=== PATIENT | male | born 1990 | race Caucasian/White ===

== ENCOUNTER 2017-04-22 11:12 | Emergency (ER) | payer SELFPAY ==
[2017-04-22] MEDS ORDERED: ceFAZolin 2 GM PREMIX (*) 2 GM/50 ML BAG IVPB ONE (11:19)
[2017-04-22] MEDS ORDERED: NS 0.9% 1000 ML* 2,000 ML IV ONE (11:19)
[2017-04-22] MEDS ORDERED: Tetan/Diph/Pertus SYR(Tdap)* 0.5 ML SYR(BOOSTRIX) use SYR IM ONE (11:19)
[2017-04-22] MEDS ORDERED: Morphine INJ* 4 MG/ML 1 ML CARPUJECT IV ONE ×2 (11:31→11:32)
[2017-04-22] MEDS ORDERED: Morphine INJ* 4 MG/ML 1 ML CARPUJECT ONE (11:33)
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
[2017-04-22 11:45] LABS: Hematocrit 46 % (42-52); Hemoglobin 14.9 g/dl (14.0-18.0); Mean Corpuscular HGB Conc 33 g/dl (31-36); Mean Corpuscular Hemoglobin 28 pg (27-31); Mean Corpuscular Volume 87 fL (80-94); Mean Platelet Volume 8 um3 (7.4-10.4); Red Blood Count 5.24 10^6/ul (4.0-5.4); Red Cell Distribution Width 16 % (10.5-15); White Blood Count 16.8 10^3/ul (3.5-10.8)
[2017-04-22 11:49] LABS: Alcohol < 10 mg/dL (<10)
[2017-04-22] MEDS ORDERED: Midazolam* 1 MG/ML 5 ML VIAL (5 MG) ONE (11:49)
[2017-04-22 11:50] LABS: ALT 12 U/L (7-52); AST 24 U/L (13-39); Albumin 4.8 g/dL (3.2-5.2); Alkaline Phosphatase 69 U/L (34-104); Anion Gap 11 mmol/L (2-11); Blood Urea Nitrogen 16 mg/dL (6-24); CO2 Carbon Dioxide 22 mmol/L (22-32); Chloride 101 mmol/L (101-111); Creatine Kinase 548 U/L (10-223); EGFR African American 84.3 (>60); EGFR Non-African American 65.5 (>60); Globulin 3.8 g/dL (2-4); Glucose 178 mg/dL (70-100); Potassium 3.8 mmol/L (3.5-5.0); Sodium 134 mmol/L (133-145); Total Protein 8.6 g/dL (6.4-8.9)
[2017-04-22] MEDS ORDERED: fentaNYL* 50 MCG/ML 2 ML VIAL (100 MCG VIAL) ONE (11:50)
[2017-04-22] MEDS ORDERED: Midazolam* 1 MG/ML 5 ML VIAL (5 MG) SLOW PUSH ONE (11:50)
[2017-04-22] MEDS ORDERED: fentaNYL* 50 MCG/ML 2 ML VIAL (100 MCG VIAL) IV SLOW PU ONE ×2 (11:50→12:21)
[2017-04-22] MEDS ORDERED: Lidocaine 1% INJ* 10 MG/ML 30 ML SDV ONE (11:53)
[2017-04-22] MEDS ORDERED: Midazolam* 1 MG/ML 5 ML VIAL (5 MG) IV ONE (12:20)
[2017-04-22] MEDS ORDERED: Lidocaine 1% MDV 20 ML INJ ONE (12:22)
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
--- NOTE | 2017-04-22 12:37 | RAD ---
HISTORY: Post chest tube insertion COMPARISONS: April 22, 2017 at 10:19 AM VIEWS:1: Single frontal portable view of the chest at 11:17 AM FINDINGS: LINES AND TUBES: A left-sided chest tube is noted. CARDIOMEDIASTINAL SILHOUETTE: The cardiomediastinal silhouette is normal for portable technique. PLEURA: The costophrenic angles are sharp. No pleural abnormalities are noted. There is no appreciable residual pneumothorax. LUNG PARENCHYMA: The lungs are clear. ABDOMEN: The upper abdomen is clear. There is no subphrenic gas. BONES AND SOFT TISSUES: There is a small amount of subcutaneous emphysema. IMPRESSION: STATUS POST LEFT SIDED CHEST TUBE INSERTION. NO APPRECIABLE RESIDUAL PNEUMOTHORAX.
[2017-04-22 13:29] VITALS: BP 138/72
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
== END 2017-04-22 13:28 | disposition short-term general hospital (02) ==
LOC: ED 11:12
DX: S21.412A Laceration without foreign body of left back wall of thorax with penetration into thoracic cavity, initial encounter (principal); S27.0XXA Traumatic pneumothorax, initial encounter; X99.1XXA Assault by knife, initial encounter; Y92.9 Unspecified place or not applicable
CPT/HCPCS: 32551; 36415; 71010; 80053; 80320; 82550; 83605; 85025; 85610; 86850; 86900; 86901; 90715; 93005; 96360; 96374; 96375; 96376; 99285; G0480; J0690; J2001; J2250; J2270; J3010

== ENCOUNTER 2017-05-08 13:33 | Emergency (ER) | payer OTHER ==
[2017-05-08 14:14] VITALS: BP 113/56
[2017-05-08 16:47] LABS: Urine Bacteria 1+ (Absent); Urine Bilirubin Negative (Negative); Urine Glucose Negative (Negative); Urine Nitrite Positive (Negative)
[2017-05-08] MEDS ORDERED: Ciprofloxacin TAB* 500 MG PO ONE ×2 (16:58)
[2017-05-08] MEDS ORDERED: NS 0.9% 1000 ML* 1,000 ML IV ONE (16:59)
[2017-05-08] MEDS ORDERED: cefTRIAXone(*) 1 GM in NS 0.9% 50 ML* 50 ML IVPB ONE (17:30)
[2017-05-08 17:54] LABS: Hematocrit 37 % (42-52); Hemoglobin 12.1 g/dl (14.0-18.0); Mean Corpuscular HGB Conc 33 g/dl (31-36); Mean Corpuscular Hemoglobin 28 pg (27-31); Mean Corpuscular Volume 86 fL (80-94); Mean Platelet Volume 8 um3 (7.4-10.4); Red Blood Count 4.26 10^6/ul (4.0-5.4); Red Cell Distribution Width 17 % (10.5-15); White Blood Count 10.2 10^3/ul (3.5-10.8)
[2017-05-08 18:09] LABS: Albumin 4.2 g/dL (3.2-5.2); BUN/Creatinine Ratio 10.5 (8-20); C Reactive Protein 29.19 mg/L (< 5.00); Calcium 9.3 mg/dL (8.6-10.3); EGFR African American 110.7 (>60); EGFR Non-African American 86.1 (>60); Globulin 2.9 g/dL (2-4); Total Bilirubin 0.3 mg/dL (0.2-1.0); Total Protein 7.1 g/dL (6.4-8.9)
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
--- NOTE | 2017-05-11 08:36 | ED ---
Progress - Progress Note Progress Note: Urine organism is sens to cipro which pt is taking - no changes at this time Course/Dx - Course Course Of Treatment: Mr. Heart was stable here in the ED, however, he has an indwelling right-sided stent, has had frequent infections and has been on outpatient antibiotics for 4-5 days. His U/A was clearly infected, he had no leukocytosis or fever and he was given IV NS, rocephin and gent. He will need to be transfered as we have no urological coverage this weekend. - Diagnoses Provider Diagnoses: Infection associated with indwelling ureteral stent - Provider Notifications Reason For Transfer: Specialty or service not available at [facility] [place]. - Critical Care Time Critical Care Time: 30-74 min
== END 2017-05-08 19:06 | disposition short-term general hospital (02) ==
LOC: ED 13:33
DX: T83.593A Infection and inflammatory reaction due to other urinary stents, initial encounter (principal); Y84.8 Other medical procedures as the cause of abnormal reaction of the patient, or of later complication, without mention of misadventure at the time of the procedure; Y92.9 Unspecified place or not applicable; F17.200 Nicotine dependence, unspecified, uncomplicated; N39.0 Urinary tract infection, site not specified; B96.20 Unspecified Escherichia coli [E. coli] as the cause of diseases classified elsewhere
CPT/HCPCS: 36415; 80053; 81003; 81015; 83605; 83690; 85025; 86140; 87040; 87077; 87086; 87186; 96360; 96374; A9270-GY; J0696; J1580

== ENCOUNTER 2019-09-12 19:51 | Emergency (ER) | payer MEDICAID, OTHER ==
[2019-09-12 20:15] VITALS: BP 153/102
[2019-09-12] MEDS ORDERED: Cephalexin CAP* 500 MG PO ONE ×2 (20:49→20:52)
[2019-09-12] MEDS ORDERED: Sulfamethox/Trimethoprim DS 800/160* TAB PO ONE ×2 (20:50→20:53)
[2019-09-12] MEDS ORDERED: Ibuprofen TAB* 400 MG PO ONE (20:50)
--- NOTE | 2019-09-12 20:55 | UC ---
Skin Complaint HPI - HPI Summary HPI Summary: 29 y/o male presents to the urgent care c/o tip of his nose if red and very painful for the past 3 days. Pt reports he was picking at his nose today and he noticed green discharge and it became more painful. Pt states pain at touch is 9 /10 and at rest is 5/10 pressure like. Pt has not taken anything to alleviate pain, He applied hidrocortisone topical cream w/o any improvement. Pt denies Hx of MRSA, IV drug use, fever, DOMINGUEZ, dizziness, chest pain,abdominal pain, N/V/ D. He states he has never had an abscess before. - History of Current Complaint Chief Complaint: UCSkin Time Seen by Provider: 09/12/19 20:32 Stated Complaint: FACIAL PAIN Hx Obtained From: Patient Onset/Duration: Gradual Onset, Lasting Days - 3 days, Worse Since - today severe pain at touch Skin Exposure Onset/Duration: Days Ago - 3 days, Worse Since: - today Timing: Constant Onset Severity: Mild Current Severity: Severe Pain Intensity: 9 - at touch Pain Scale Used: 0-10 Numeric Location: Nose - tip of nose w/ Character: Swelling, Pain - nose pain, Redness, Raised Aggravating Factor(s): Touch, Other - he was picking out and mild green drainage observed Alleviating Factor(s): Nothing Associated Signs & Symptoms: Positive: Rash - tip of nose w/ redness and painful , Drainage - mild green from tip of nose, Tenderness. Negative: Shivering, Difficulty Breathing, Fever, Chills, Hoarseness, Throat Tightening, Lightheadedness, Red Streaks, Joint Swelling Related History: Other: - unknown - Allergy/Home Medications Allergies/Adverse Reactions: Allergies Allergy/AdvReac Type Severity Reaction Status Date / Time No Known Allergies Allergy Verified 09/12/19 20:15 Home Medications: Home Medications Hydrocortisone 1% CREAM* [Hytone Cream 1%*] 09/12/19 [History] PMH/Surg Hx/FS Hx/Imm Hx Previously Healthy: Yes - Pt denies PMHX - Surgical History Surgical History: Yes Surgery Procedure, Year, and Place: repair abd organs post injury - Family History Known Family History: Positive: Hypertension, Diabetes - Social History Occupation: Student Lives: With Family Alcohol Use: Occasionally Substance Use Type: Marijuana Substance Use Comment - Amount & Last Used: Per family does drugs but unknown amt and type Smoking Status (MU): Current Every Day Smoker Type: Cigarettes Amount Used/How Often: 1 ppd Review of Systems All Other Systems Reviewed And Are Negative: Yes Constitutional: Positive: Negative Skin: Positive: Rash - tip of nose w/ red rash painful and mild green drainage for the past 3 days Eyes: Positive: Negative ENT: Positive: Negative Respiratory: Positive: Negative Cardiovascular: Positive: Negative Gastrointestinal: Positive: Negative Genitourinary: Positive: Negative Motor: Positive: Negative Neurovascular: Positive: Negative Musculoskeletal: Positive: Negative Neurological: Positive: Negative Psychological: Positive: Negative Is Patient Immunocompromised?: No Physical Exam - Summary Physical Exam Summary: Vital Signs Reviewed: Yes General: well developed, well nourished male sitting in the examining table w/o any apparent distress Eye Exam: Normal Eyes: Positive: Conjunctiva Clear - PERRLA, EOMI, fundi grossly normal ENT: Positive: Normal ENT inspection, Hearing grossly normal, Pharynx normal, TMs normal Neck: Positive: Supple, Nontender, No Lymphadenopathy Respiratory: Positive: Chest non-tender, Lungs clear, Normal breath sounds, No respiratory distress Cardiovascular: Positive: RRR, No Murmur, Pulses Normal, Brisk Capillary Refill Abdomen Description: Positive: Nontender, No Organomegaly, Soft. Negative: CVA Tenderness (R), CVA Tenderness (L) Bowel Sounds: Positive: Present Musculoskeletal: Positive: Strength Intact, ROM Intact, No Edema Neurological: Positive: Alert, Muscle Tone Normal Psychological Exam: Normal Skin: Positive: Positive erythematous patch w/ indistinct borders at the tip of the external nose,indurated, warm and tender to palpation, mild green drainage observed ant the entrance of the. pulses WNL, capillary refill brisk, sensation WNL. Triage Information Reviewed: Yes Vital Signs: Initial Vital Signs Temp 98.2 F 09/12/19 20:12 Pulse 84 09/12/19 20:12 Resp 20 09/12/19 20:12 BP 153/102 09/12/19 20:12 Pulse Ox 100 09/12/19 20:12 Course/Dx - Course Course Of Treatment: 29 y/o male presents to the urgent care c/o tip of his nose if red and very painful for the past 3 days. Pt reports he was picking at his nose today and he noticed green discharge and it became more painful. Pt states pain at touch is 9 /10 and at rest is 5/10 pressure like. Pt has not taken anything to alleviate pain, He applied hidrocortisone topical cream w/o any improvement. Pt denies Hx of MRSA, IV drug use, fever, DOMINGUEZ, dizziness, chest pain,abdominal pain, N/V/ D. He states he has never had an abscess before. Hx obtained. Pt with cellulitis or abscess on tip of his external nose on examination. Wound sample taken from the discrete green drainage and sent to the lab for culture to r/o MRSA. Bacitracin oint applied. Pt's symptoms discussed w/ DR Krishnamurthy since Pt may need I&D. Dr Krishnamurthy recommended Bactrim PO and Keflex PO, wound culture and f/u w/ ENT tomorrow for further management since Pt may need I&D. Pt given first dose of antibiotics and some dispense home. Also given Ibuprofen PO for pain. Pt tolerated well medications. Pt Rx Bactrim PO, Keflex PO , MUpurocin topical ointment and [place] PO as directed below. Pt advised to apply warm compresses. Pt given ENT referral w/ DR Gabriel and strongly recommended to call him tomorrow morning and if unable to make appt to call the urgent care so they can help him set up the appt for tomorrow. Pt also advised if fever, DOMINGUEZ, or dizziness develops or redness doubles in size after 48 hrs of taken antibiotic to immediately go to the ER for further management.Pt's BP is elevated today advised to decrease salt in diet, monitor BP and f/u with PCP for further management. D/C instructions explained. Pt understood and agreed w / plan of care. - Differential Diagnoses - Skin Complaint Differential Diagnoses: Abscess, Cellulitis, Contact Dermatitis, Impetigo, Local Allergic Reaction, Lymphadenitis, MRSA - Diagnoses Provider Diagnosis: Abscess or cellulitis of nose, external, Elevated BP without diagnosis of hypertension Discharge ED - Sign-Out/Discharge Documenting (check all that apply): Patient Departure - D/C home All imaging exams completed and their final reports reviewed: No Studies - Discharge Plan Condition: Stable Disposition: HOME Prescriptions: Cephalexin CAP* [Keflex CAP*] 500 mg PO QID #26 cap HYDROcodone/ACETAMIN 5-325 MG* [[place] 5-325 TAB*] 1 tab PO Q6H PRN #12 tab MDD 1g/4h-4g/day PRN Reason: moderate pain Mupirocin 2% OINT* [Bactroban 2 % Oint*] 1 applic TOPICAL BID #1 tube Sulfamethox/Trimethoprim DS* [Bactrim DS 800/160 TAB*] 1 tab PO BID #18 tab Patient Education Materials: Abscess (ED) Forms: *School Release Referrals: Jeff Gabriel MD [Medical Doctor] - 1 Day [facility] [place] - 1 Day Additional Instructions: 1-Please take full course of antibiotic to avoid resistance. Apply warm compresses and bactroban topical oint as directed to alleviate symptoms 2 Take [place] PO as directed for pain or swelling. You can also alternate w/ Ibuprofen PO q6-8hrs prn after meals 3-If you develop fever or redness despite antibiotic please go to the ER immediately for further management 4- Wound culture sent to lab, if any abnormal result you will receive a call from us. Depending on cultures you will also be notified to stop one of the antibiotics 5- Please f/u tomorrow morning w/ ENT Dr Gabriel for further management on your Nose abscess. If your can't get an appt soon please call the urgent care to make sure they can help you get the appt for tomorrow. 6-Your BP is elevated today. Please take your BP medications and decrease salt in your diet, monitor BP and if it continues to be elevated please f/u with your PCP for further management. If you develop chest pain, dizziness, visual disturbances, SOB, or severe DOMINGUEZ please go immediately to the ER for further management - Billing Disposition and Condition Condition: STABLE Disposition: Home - Attestation Statements Provider Attestation: I was available for consult. Chart reviewed. SILVANO
--- NOTE | 2019-09-14 15:33 | UC ---
- Progress Note Progress Note: PLEASE CALL PATIENT AND ADVISE THAT BACTERIAL CULTURE POSITIVE FOR MRSA. ENSURE PATIENT IS TAKING HIS ANTIBIOTICS PRESCRIBED. Course/Dx - Diagnoses Provider Diagnoses: Abscess or cellulitis of nose, external, Elevated BP without diagnosis of hypertension Discharge ED - Sign-Out/Discharge Documenting (check all that apply): Post-Discharge Follow Up All imaging exams completed and their final reports reviewed: No Studies - Discharge Plan Condition: Stable Disposition: HOME Prescriptions: Cephalexin CAP* [Keflex CAP*] 500 mg PO QID #26 cap HYDROcodone/ACETAMIN 5-325 MG* [[place] 5-325 TAB*] 1 tab PO Q6H PRN #12 tab MDD 1g/4h-4g/day PRN Reason: moderate pain Mupirocin 2% OINT* [Bactroban 2 % Oint*] 1 applic TOPICAL BID #1 tube Sulfamethox/Trimethoprim DS* [Bactrim DS 800/160 TAB*] 1 tab PO BID #18 tab Patient Education Materials: Abscess (ED) Forms: *School Release Referrals: [facility]] - 1 Day Jeff Gabriel MD [Medical Doctor] - 1 Day Additional Instructions: 1-Please take full course of antibiotic to avoid resistance. Apply warm compresses and bactroban topical oint as directed to alleviate symptoms 2 Take [place] PO as directed for pain or swelling. You can also alternate w/ Ibuprofen PO q6-8hrs prn after meals 3-If you develop fever or redness despite antibiotic please go to the ER immediately for further management 4- Wound culture sent to lab, if any abnormal result you will receive a call from us. Depending on cultures you will also be notified to stop one of the antibiotics 5- Please f/u tomorrow morning w/ ENT Dr Gabriel for further management on your Nose abscess. If your can't get an appt soon please call the urgent care to make sure they can help you get the appt for tomorrow. 6-Your BP is elevated today. Please take your BP medications and decrease salt in your diet, monitor BP and if it continues to be elevated please f/u with your PCP for further management. If you develop chest pain, dizziness, visual disturbances, SOB, or severe DOMINGUEZ please go immediately to the ER for further management - Billing Disposition and Condition Condition: STABLE Disposition: Home
== END 2019-09-12 21:40 | disposition home or self-care (01) ==
LOC: UCEAST 19:51
DX: J34.89 Other specified disorders of nose and nasal sinuses (principal); R03.0 Elevated blood-pressure reading, without diagnosis of hypertension; F17.210 Nicotine dependence, cigarettes, uncomplicated
CPT/HCPCS: 87070; 87205; 87640; 87641; 99213; A9270-GY; G0463